=== PATIENT | male | born 1955 | race Caucasian/White ===

== ENCOUNTER 2019-02-06 13:13 | Emergency (ER) | payer OTHER ==
[~2019-02-06] VITALS: Ht 172.7 cm; Wt 88.0 kg
[2019-02-06 13:15] VITALS: Ht 172.7 cm; Wt 88.0 kg
[2019-02-06 14:29] VITALS: BP 159/88
== END 2019-02-06 14:29 | disposition home or self-care (01) ==
LOC: ED 13:13
DX: R42 Dizziness and giddiness (principal); M25.512 Pain in left shoulder; I10 Essential (primary) hypertension; Z13.89 Encounter for screening for other disorder; Z98.890 Other specified postprocedural states; V43.52XA Car driver injured in collision with other type car in traffic accident, initial encounter; Y93.I9 Activity, other involving external motion; Y92.488 Other paved roadways as the place of occurrence of the external cause; Y99.8 Other external cause status